=== PATIENT | female | born 1990 | race Caucasian/White ===

== ENCOUNTER 2024-08-13 18:57 | Emergency (ER) | payer BC, SELFPAY ==
[2024-08-13] VITALS (13 sets, daily range): BP systolic 92–133; BP diastolic 57–80; PULSE 63–84; RESP 8–18; TEMP 36.9; O2SAT 94–100; BMI 26.6
--- NOTE | 2024-08-13 22:01 | ED.SKABFB ---
HPI - Skin/Abscess/Foreign Bdy General Chief complaint: Skin/Abscess/Foreign Body Stated complaint: abscess on face on antibiotics pain getting worse Time Seen by Provider: 08/13/24 22:01 Source: patient Mode of arrival: Family Vehicle Limitations: no limitations History of Present Illness HPI narrative: 33-year-old female with left facial swelling for the last 5 days, seen in clinic 2 days ago taking oral Augmentin, denies missed doses, increasing swelling despite the oral antibiotic. No fevers. Able to swallow. Has increasing swelling to the anterior and left lateral face. Able to open her mouth. Does not have any sore teeth. No local trauma, no penetrating injury. No drainage from face internal or external. No history of salivary gland problems. Related Data Home Medications ?Medication ?Instructions ?Recorded ?Confirmed sertraline 100 mg tablet mg PO 08/13/24 Previous Rx's ?Medication ?Instructions ?Recorded amoxicillin 875 mg-potassium 1 tab PO Q12H 10 days #20 tabs 08/12/24 clavulanate 125 mg tablet prednisone 20 mg tablet 40 mg (2 x 20 mg) PO DAILY 5 days 08/14/24 #10 tabs sulfamethoxazole 800 1 tab PO BID #14 tabs 08/14/24 mg-trimethoprim 160 mg tablet (Bactrim DS) Allergies Allergy/AdvReac Type Severity Reaction Status Date / Time No Known Drug Allergies Allergy Verified 08/13/24 19:04 Patient History Social History Smoking Status: Never smoker Smoking Status: Never smoker Exam Narrative Exam Narrative: GENERAL: Well-developed patient, in mild distress. HEAD: Atraumatic. Normocephalic. EYES: Pupils equal round and reactive. Extraocular motions intact. No scleral icterus. No injection or drainage. ENT: Left pre maxillary swelling with central erythema, no crepitance, no fluctuance, some tenderness. Oropharyngeal dentition seems good, no gingival or lingual tenderness. No anterior cervical lymphadenopathy, moves neck well. Normal phonation. NECK: Trachea midline. Non tender CARDIOVASCULAR: Regular rate and rhythm without murmurs, gallops, or rubs. RESPIRATORY: Clear to auscultation. Breath sounds equal bilaterally. No wheezes, rales, or rhonchi. GASTROINTESTINAL: Abdomen soft, non-tender, nondistended. EXTREMITIES: No edema or joint tenderness. BACK: Nontender without deformity or crepitance. No flank tenderness. NEURO: AOx3. Motor functions grossly nonfocal SKIN: No rash or erythema of visible areas Initial Vital Signs Initial Vital Signs: Vital Signs Temperature 98.4 F 08/13/24 19:03 Pulse Rate 84 08/13/24 19:03 Respiratory Rate 18 08/13/24 19:03 Blood Pressure 122/80 08/13/24 19:03 Pulse Oximetry 100 08/13/24 19:03 Oxygen Delivery Method Room Air 08/13/24 19:03 Course Orders Ordered: ED Orders 08/13/24 22:11 CT facial bones w con Stat 08/13/24 23:25 CBC Auto Diff [Complete Blood Count AUTO DIFF] Stat CMP [Comprehensive Metabolic Panel] Stat HCG Quantitative /Beta subunit Stat Discontinued Medications Hydrocodone Bitart/Acetaminophen (Hydrocodone/Acet 5/325 Prepack) 1 bottle MISC DIRECTED ONE Stop: 08/14/24 02:04 Last Admin: 08/14/24 02:11 Dose: 1 bottle Documented By: YUNG Dexamethasone (Dexamethasone 10 Mg/Ml Vial) 10 mg IV NOW ONE Stop: 08/13/24 22:11 Last Admin: 08/13/24 23:25 Dose: 10 mg Documented By: YUNG Hydromorphone HCl (Hydromorphone 0.5 Mg Inj) 0.5 mg IV NOW ONE Stop: 08/13/24 22:11 Last Admin: 08/13/24 23:25 Dose: 0.5 mg Documented By: YUNG Ampicillin Sodium/Sulbactam (Sodium 3 gm/ Sodium Chloride) 100 mls @ 200 mls/hr IV NOW ONE Stop: 08/13/24 22:11 Last Infusion: 08/14/24 00:17 Dose: Infused Documented By: [facility] Admin: 08/13/24 23:25 Dose: 200 mls/hr Documented By: YUNG Sodium Chloride (Normal Saline 0.9%) 1,000 mls @ 1,000 mls/hr IV BOLUS ONE Stop: 08/13/24 23:11 Last Infusion: 08/14/24 01:41 Dose: Infused Documented By: [facility] Admin: 08/13/24 23:31 Dose: 1,000 mls/hr Documented By: YUNG Ondansetron HCl (Ondansetron 4 Mg/2 Ml Inj) 4 mg IV NOW ONE Stop: 08/13/24 22:11 Last Admin: 08/13/24 23:25 Dose: 4 mg Documented By: YUNG Trimethoprim/Sulfamethoxazole (Trimeth/Sulfa 160/800 (Ds) Tablet) 1 tab PO NOW ONE Stop: 08/14/24 01:30 Last Admin: 08/14/24 01:40 Dose: 1 tab Documented By: YUNG Vital Signs Vital signs: Vital Signs - 8 hr 08/13/24 19:56 08/13/24 19:56 08/13/24 20:00 Pulse Rate 69 74 Respiratory Rate Blood Pressure 133/74 Pulse Oximetry 94 98 Oxygen Delivery Method 08/13/24 20:30 08/13/24 20:38 08/13/24 20:38 Pulse Rate 75 81 Respiratory Rate Blood Pressure 131/68 Pulse Oximetry 99 99 Oxygen Delivery Method Room Air 08/13/24 21:00 08/13/24 21:00 08/13/24 21:30 Pulse Rate 70 75 Respiratory Rate Blood Pressure 111/66 Pulse Oximetry 99 98 Oxygen Delivery Method 08/13/24 21:31 08/13/24 21:31 08/13/24 22:00 Pulse Rate 73 64 Respiratory Rate 18 Blood Pressure 92/64 Pulse Oximetry 99 100 Oxygen Delivery Method 08/13/24 22:30 08/13/24 22:32 08/13/24 22:32 Pulse Rate 63 65 Respiratory Rate Blood Pressure 102/64 Pulse Oximetry 100 99 Oxygen Delivery Method 08/13/24 23:00 08/13/24 23:00 08/13/24 23:30 Pulse Rate 71 Respiratory Rate Blood Pressure 94/57 L 114/76 Pulse Oximetry 99 Oxygen Delivery Method 08/13/24 23:30 08/14/24 00:05 08/14/24 00:14 Pulse Rate 71 82 Respiratory Rate 8 L 19 Blood Pressure 109/75 Pulse Oximetry 98 Oxygen Delivery Method Room Air 08/14/24 00:14 08/14/24 00:30 08/14/24 00:30 Pulse Rate 70 73 Respiratory Rate 22 14 Blood Pressure 116/67 Pulse Oximetry 98 96 Oxygen Delivery Method Room Air 08/14/24 01:00 08/14/24 01:00 08/14/24 01:30 Pulse Rate 66 Respiratory Rate 13 Blood Pressure 110/70 105/64 Pulse Oximetry 97 Oxygen Delivery Method 08/14/24 01:30 08/14/24 02:00 08/14/24 02:00 Pulse Rate 71 64 Respiratory Rate 15 15 Blood Pressure 107/77 Pulse Oximetry 96 96 Oxygen Delivery Method MDM - Skin/Abscess/Foreign Bdy Lab Data 08/13/24 23:25 08/13/24 23:25 Labs: Lab Results 08/13/24 Range/Units 23:25 WBC 10.3 (4.5-11.0) X10^3/uL RBC 4.97 (4.0-5.2) X10^6/uL Hgb 14.4 (12.0-16.0) g/dL Hct 41.9 (36-46) % MCV 84.4 (80-100) fL MCH 29.0 (26-34) PG MCHC 34.3 (30-36) % RDW 13.0 (11.6-14.8) % Plt Count 314 (150-400) X10^3/uL Neut % (Auto) 63.1 (50-75) % Lymph % (Auto) 31.4 (25-40) % Cochran % (Auto) 4.1 (3-14) % Eos % (Auto) 1.1 L (2-4) % Baso % (Auto) 0.3 (0-2) % Neut # (Auto) 6500 (8638-9124) /uL Lymph # (Auto) 3200 (3143-0224) /uL Cochran # (Auto) 400 (0-900) /uL Eos # (Auto) 100 (0-450) /uL Baso # (Auto) 0 (0-100) /uL Sodium 140 (137-145) mmol/L Potassium 3.8 (3.4-5.1) mmol/L Chloride 105 (98-107) mmol/L Carbon Dioxide 27 (22-32) mmol/L BUN 11 (7-17) mg/dL Creatinine 0.88 (0.52-1.04) mg/dL Estimated GFR > 60 (>60) mL/min BUN/Creatinine Ratio 12.5 (6-22) Glucose 92 (70-99) mg/dL Calcium 9.4 (8.4-10.2) mg/dL Total Bilirubin 0.3 (0.2-1.3) mg/dL AST 25 (14-36) IU/L ALT 17 (<35) IU/L Alkaline Phosphatase 47 (38-126) U/L Total Protein 7.9 (6.3-8.2) g/dL Albumin 4.6 (3.5-5.0) g/dL Globulin 3.3 (1.7-4.1) g/dL Albumin/Globulin Ratio 1.4 (1.0-2.8) HCG, Quant < 2.39 mIU/mL Point of Care Testing Test Results Negative Imaging Data CT face with IV contrast: Radiologist's Impression: [address] [address] [address] Scan Report Signed Patient: María Elena Sanchez MR#: [id number] : 1990 Acct:[id number] Age/Sex: 33 / Date of Service: 08/13/24 Loc: ED Accession Number: [id number] Procedure: CT facial bones w con Ordering Provider: Castro Mccartney MD PROCEDURE: CT FACIAL BONES W CON INDICATIONS: increasing L facial swelling on PO abx TECHNIQUE: After the administration of intravenous contrast, 2.5 mm axial sections acquired from the mid-neck to the frontal sinuses, with coronal and sagittal reformats. For radiation dose reduction, the following was used: automated exposure control, adjustment of mA and/or kV according to patient size. COMPARISON: None. FINDINGS: Image quality: Excellent. Soft tissues: Subcutaneous soft tissue thickening with slight underlying fat stranding in the left malar region. There are no focal drainable fluid collections. Mild thickening at the skin surface. There is a slightly prominent left submandibular lymph node. Vascular: Visualized vascular structures appear patent throughout. Bony vascular foramina and canals appear normal. Bones: Facial bones appear intact, without fractures, erosions, or destruction. Visualized portions of the skull base and auditory canals also appear normal. Sinuses: Paranasal sinuses are aerated without fluid levels, mucosal thickening, or mucoceles. Mastoid air cells are aerated. IMPRESSION: Left malar soft tissue swelling without underlying drainable fluid collection. Small reactive lymph node in the submandibular region. Dictated by: Zahraa Bowman M.D. on 08/14/2024 at 1:17 Approved by: Zahraa Bowman M.D. on 08/14/2024 at 1:21 MDM Narrative Medical decision making narrative: 33-year-old female day 2 of oral Augmentin antibiotic with 5 days duration of increasing left facial swelling and pain. Appearance appears likely dermatologic facial folliculitis suspected. Internal oral exam without obvious poor dentition. Could consider parotiditis but more anterior in location and with central erythema, likely dermatologic. No drainage of fluid. IV Unasyn, Dilaudid, Zofran, Decadron, fluid bolus. CT face with IV contrast, evaluate for drainable fluid collection. Progression of left facial cellulitis despite Augmentin dosing, consider MRSA. Consider drainable fluid collection. Keep NPO. No urine obtained for hCG, serum hCG added, was negative. CT face ordered with IV contrast. CT face with IV contrast shows malar cellulitis changes, no drainable fluid. No odontogenic periapical abscess described, no parotiditis described. See radiology report. Likely dermatologic allergy of her facial cellulitis, was not responding to Augmentin, consider MRSA underlying, no drainable fluid collection, we will add Bactrim coverage. We will add few days more of steroid to control pain and swelling. Recheck with Otolaryngology, contact information provided for Dr. Renteria on-call Discharge Plan Departure Patient Disposition: Home Clinical Impression: Facial cellulitis Instructions: DI for Cellulitis -- Adult Activity Restrictions/Additional Instructions: Nontraumatic left anterior facial swelling and redness increasing in pain. Not responsive to Augmentin oral antibiotic. IV steroid and IV Unasyn antibiotics given. CT imaging of the face showed no drainable fluid collection, did show cellulitis thickening of the left side of your face, but fortunately no surgical intervention to drain any fluid collection. There was not mentioned of any rise of infection from dental caries of the teeth and oral cavity, no evidence of infection rising from any of the salivary glands. It is likely arising from skin infection itself, such as a blocked hair follicle, but fortunately no drainage procedure required at this time. Prescription for further steroids to reduce inflammation sent to your pharmacy. Augmentin antibiotic should be continued. In case of Staphylococcus aureus bacterial infection, in case it might be methicillin-resistant (MRSA), we will add oral Bactrim sulfa antibiotic, perhaps this will help it to turn around and further improve, since it did not seem to be responding to Augmentin alone. Consider recheck with your regular doctor in the next couple of days. 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 Recheck earlier to this/nearest emergency department for any change worsening symptoms or any concerns prior. Prescriptions: New sulfamethoxazole-trimethoprim [Bactrim DS] 800-160 mg tablet 1 tab PO BID Qty: 14 0RF prednisone 20 mg tablet 40 mg PO DAILY 5 Days Qty: 10 0RF No Action amoxicillin-pot clavulanate 875-125 mg tablet 1 tab PO Q12H 10 Days Qty: 20 0RF sertraline 100 mg tablet PO Referrals: Miscellaneous,Doctor, [Primary Care Provider, Medical] Stand Alone Forms: Patient Portal/API
--- NOTE | 2024-08-13 22:11 | DI.CT.S_ITS ---
PROCEDURE: CT FACIAL BONES W CON INDICATIONS: increasing L facial swelling on PO abx TECHNIQUE: After the administration of intravenous contrast, 2.5 mm axial sections acquired from the mid-neck to the frontal sinuses, with coronal and sagittal reformats. For radiation dose reduction, the following was used: automated exposure control, adjustment of mA and/or kV according to patient size. COMPARISON: None. FINDINGS: Image quality: Excellent. Soft tissues: Subcutaneous soft tissue thickening with slight underlying fat stranding in the left malar region. There are no focal drainable fluid collections. Mild thickening at the skin surface. There is a slightly prominent left submandibular lymph node. Vascular: Visualized vascular structures appear patent throughout. Bony vascular foramina and canals appear normal. Bones: Facial bones appear intact, without fractures, erosions, or destruction. Visualized portions of the skull base and auditory canals also appear normal. Sinuses: Paranasal sinuses are aerated without fluid levels, mucosal thickening, or mucoceles. Mastoid air cells are aerated. IMPRESSION: Left malar soft tissue swelling without underlying drainable fluid collection. Small reactive lymph node in the submandibular region. Dictated by: Zahraa Bowman M.D. on 08/14/2024 at 1:17 Approved by: Zahraa Bowman M.D. on 08/14/2024 at 1:21
[2024-08-13] MEDS: HYDROMORPHONE 0.5 MG INJ IV (23:25)
[2024-08-13] MEDS: AMPICILLIN/SULBACTAM 3 GM 3 GM in SODIUM CHLORIDE 0.9% 100 ML IV (23:25)
[2024-08-13] MEDS: ONDANSETRON 4 MG/2 ML INJ IV (23:25)
[2024-08-13] MEDS: DEXAMETHASONE 10 MG/ML VIAL IV (23:25)
[2024-08-13] MEDS: SODIUM CHLORIDE 0.9% 1,000 ML 1000 ML IV (23:31)
[2024-08-13 23:33] LABS: Add Manual Diff / Slide Review NO; Basophils Absolute Auto 0 /uL (0-100); Basophils Percent Auto 0.3 % (0-2); Eosinophils Absolute Auto 100 /uL (0-450); Eosinophils Percent Auto 1.1 % (2-4); Hematocrit 41.9 % (36-46); Hemoglobin 14.4 g/dL (12.0-16.0); Lymphocytes Absolute Auto 3200 /uL (1100-4500); Lymphocytes Percent Auto 31.4 % (25-40); Mean Corpuscular HGB Conc 34.3 % (30-36); Mean Corpuscular Volume 84.4 fL (80-100); Monocytes Absolute Auto 400 /uL (0-900); Monocytes Percent Auto 4.1 % (3-14); Neutrophils Absolute Auto 6500 /uL (1500-7000); Neutrophils Percent Auto 63.1 % (50-75); Platelet Count 314 X10^3/uL (150-400); Red Blood Cell Count 4.97 X10^6/uL (4.0-5.2); White Blood Cell Count 10.3 X10^3/uL (4.5-11.0)
[2024-08-13 23:45] LABS: Alanine Aminotransferase 17 IU/L (<35); Albumin 4.6 g/dL (3.5-5.0); Albumin Globulin Ratio 1.4 (1.0-2.8); Alkaline Phosphatase 47 U/L (38-126); Aspartate Aminotransferase 25 IU/L (14-36); BUN Creatinine Ratio 12.5 (6-22); Bilirubin Total 0.3 mg/dL (0.2-1.3); Blood Urea Nitrogen 11 mg/dL (7-17); Calcium 9.4 mg/dL (8.4-10.2); Carbon Dioxide 27 mmol/L (22-32); Chloride 105 mmol/L (98-107); Estimated Glomerular Filt Rate > 60 mL/min (>60); Globulin 3.3 g/dL (1.7-4.1); Glucose 92 mg/dL (70-99); HEMOLYSIS < 15 (0-50); Potassium 3.8 mmol/L (3.4-5.1); Sodium 140 mmol/L (137-145); Total Protein 7.9 g/dL (6.3-8.2)
[2024-08-14 00:05] VITALS: PULSE 82; RESP 19
[2024-08-14 00:14] VITALS: BP 109/75; PULSE 70; RESP 22; O2SAT 98
[2024-08-14 00:30] VITALS: BP 116/67; PULSE 73; RESP 14; O2SAT 96
[2024-08-14 00:55] LABS: HCG Quantitative /Beta subunit < 2.39 mIU/mL
[2024-08-14 01:00] VITALS: BP 110/70; PULSE 66; RESP 13; O2SAT 97
[2024-08-14 01:30] VITALS: BP 105/64; PULSE 71; RESP 15; O2SAT 96
[2024-08-14] MEDS: TRIMETH/SULFA 160/800 (DS) TABLET 1 TAB PO (01:40)
[2024-08-14 02:00] VITALS: BP 107/77; PULSE 64; RESP 15; O2SAT 96
[2024-08-14] MEDS: HYDROCODONE/ACET 5/325 PREPACK 1 BOTTLE MISC (02:11)
== END 2024-08-14 02:21 | disposition home or self-care (01) ==
PROVIDERS: Emergency Provider Emergency Medicine
DX: L03.211 Cellulitis of face (principal)
CPT/HCPCS: 36415; 70487; 80053; 81025; 84702; 85025; 96361; 96365; 96375; 99284; J0295; J1100; J1171; J2405; Q9967